=== PATIENT | male | born 1985 | race Hispanic/Latino ===

== ENCOUNTER 2016-08-09 12:41 | Emergency (ER) | payer BC, OTHER ==
[2016-08-09 12:53] VITALS: BP 141/70; PULSE 73; RESP 18; TEMP 97.5; O2SAT 95
--- NOTE | 2016-08-09 13:03 | C.PDOC ---
History Of Present Illness 31 yo male w/o significant PMHx come in for evaluation of Left lower leg dog bite sustained today around 11 AM. Pt sts, was walking on street, when other person was turned around the corner with dog on leash. Dog jumped and grab me by my jeans and owner professional engineer was able to pull the dog back from me". Pt admits, went home and washed the wound thoroughly. Otherwise, pt denies open wound, weakness to left leg, sensory or vascular deficits to injured leg. Ambulate to ED for evaluation, not in any apparent distress. Time Seen by Provider: 08/09/16 12:55 Chief Complaint (Nursing): Bite History Per: Patient Onset/Duration Of Symptoms: Sudden Onset Past Medical History Reviewed: Historical Data, Nursing Documentation, Vital Signs Vital Signs: Last Vital Signs Temp 97.5 F L 08/09/16 12:51 Pulse 73 08/09/16 12:51 Resp 18 08/09/16 12:51 BP 141/70 08/09/16 12:51 Pulse Ox 95 08/09/16 12:51 - Medical History PMH: No Chronic Diseases Surgical History: No Surg Hx - [facility] Procedures APPLICATION OF SPLINT (10/25/14) CLOSURE SKIN & SUBCUTANEOUS NEC (12/18/12) DIPHTHERIA TOXOID ADMIN (12/18/12) TETANUS TOXOID ADMINIST (12/18/12) Family History: States: Diabetes - Social History Hx Tobacco Use: No Hx Alcohol Use: Yes Hx Substance Use: No - Immunization History Hx Tetanus Toxoid Vaccination: No Hx Influenza Vaccination: Yes Hx Pneumococcal Vaccination: No Review Of Systems Except As Marked, All Systems Reviewed And Found Negative. Constitutional: Negative for: Fever, Chills Musculoskeletal: Negative for: Leg Pain Skin: Positive for: Lesions Neurological: Negative for: Weakness Physical Exam - Physical Exam Appears: Well, Non-toxic, No Acute Distress Skin: Normal Color, Warm, Other (superficial abrasion with trace ecchymoses to Left proximal fibula. No puncture or open wound noted. No wound discharge, no erythema, no proximal streaking. FAROM, no neurovascular deficits) Head: Atraumatic, Normacephalic Eye(s): bilateral: Normal Inspection Oral Mucosa: Moist Neck: Normal, Normal ROM, Supple Extremity: Normal ROM, No Tenderness, No Deformity, No Swelling Extremity: Bilateral: Atraumatic Neurological/Psych: Oriented x3, Normal Speech, Normal Motor, Normal Sensation, Normal Reflexes ED Course And Treatment O2 Sat by Pulse Oximetry: 95 Progress Note: On re-evaluation, pt is afebrile, hemodynamicaly stable. Non- toxic. AMbulatory in ED with stable gait. Left leg; superficial abrasion to Left leg noted, no puncture/opened wound. FAROM, no neurovascular deficits. NO cellulitis. Pt advised on course of ds. ref. to F/u with PMD In 2-3 dyas for re-eavl. return to ED if any worsening or new changes. Disposition Counseled Patient/Family Regarding: Diagnosis, Need For Followup, Rx Given - Disposition Referrals: [facility] [Outside] Disposition: HOME/ ROUTINE Disposition Time: 13:03 Condition: STABLE Additional Instructions: Clean wound daily for peroxide Antibacterial cream daily to wound Take medication as prescribed Follow up with PMD In 2-3 days for re-evaluation. Return to ED if any worsening or new changes. Prescriptions: Bacitracin OINT 1 applic TP BID #1 tube Doxycycline Hyclate 100 mg PO Q12 #14 tab Instructions: Animal Bite (ED) - Clinical Impression Clinical Impression: Animal bite wound
== END 2016-08-09 13:20 | disposition home or self-care (01) ==
LOC: C.ER 12:41
DX: S80.812A Abrasion, left lower leg, initial encounter (principal); W54.0XXA Bitten by dog, initial encounter; Y93.01 Activity, walking, marching and hiking; Y92.410 Unspecified street and highway as the place of occurrence of the external cause

== ENCOUNTER 2017-11-18 11:42 | Emergency (ER) | payer BC ==
[2017-11-18 11:50] VITALS: BP 126/78; PULSE 66; RESP 16; TEMP 98; O2SAT 96
[2017-11-18] MEDS ORDERED: Fluorescein 1 mg Ophthalmic Strip OD ONE (12:12)
[2017-11-18] MEDS ORDERED: Tetracaine 0.5% Ophth 2 ML BOTTLE OU ONE (12:12)
[2017-11-18] MEDS ORDERED: Tetracaine 0.5% Ophth (OR ONLY) ONE (12:24)
[2017-11-18] MEDS ORDERED: Fluorescein 1 mg Ophthalmic Strip ONE (12:26)
--- NOTE | 2017-11-18 12:38 | C.PDOC ---
History Of Present Illness 32 y/o male presents to ED with c/o right eye cloudiness and trouble seeing which developed today. Patient states stripping solution got into right eye yesterday while at work. He was stripping floors and using the "stripping solution" when some liquid splashed in his eye. Patient states he used eye wash at work. Denied any pain or burning at that time and even currently. Patient denies pain, fever, headache or discharge from eye. Time Seen by Provider: 11/18/17 11:58 Chief Complaint (Nursing): Eye Problem History Per: Patient History/Exam Limitations: no limitations Onset/Duration Of Symptoms: Days Current Symptoms Are (Timing): Still Present Past Medical History Reviewed: Historical Data, Nursing Documentation, Vital Signs Vital Signs: Last Vital Signs Temp 98.0 F 11/18/17 11:49 Pulse 66 11/18/17 11:49 Resp 16 11/18/17 11:49 BP 126/78 11/18/17 11:49 Pulse Ox 96 11/18/17 13:11 - Medical History PMH: No Chronic Diseases Surgical History: No Surg Hx - [facility] Procedures APPLICATION OF SPLINT (10/25/14) CLOSURE SKIN & SUBCUTANEOUS NEC (12/18/12) DIPHTHERIA TOXOID ADMIN (12/18/12) TETANUS TOXOID ADMINIST (12/18/12) Family History: States: Diabetes - Social History Hx Tobacco Use: No Hx Alcohol Use: Yes Hx Substance Use: No - Immunization History Hx Tetanus Toxoid Vaccination: No Hx Influenza Vaccination: Yes Hx Pneumococcal Vaccination: No Review Of Systems Constitutional: Negative for: Fever, Chills Eyes: Positive for: Pain, Vision Change Respiratory: Negative for: Cough, Shortness of Breath Skin: Negative for: Rash Physical Exam - Physical Exam Appears: Non-toxic, No Acute Distress Skin: Warm, Dry, No Rash Head: Atraumatic, Normacephalic Eye(s): bilateral: PERRL, EOMI, right: Other (cloudiness and small bubble to lateral eye), left: Normal Inspection Oral Mucosa: Moist Throat: Normal, No Erythema, No Exudate Chest: Symmetrical Neurological/Psych: Oriented x3, Normal Speech Gait: Steady ED Course And Treatment O2 Sat by Pulse Oximetry: 96 (RA) Pulse Ox Interpretation: Normal Medical Decision Making Medical Decision Making: Patient with solution to eye yesterday. Visual acuity obtained. Applied tetracaine and fluoroscein with no corneal abrasion visualized. On eye exam can see bubble and cloudy film to lateral eye. Attempt to rub area with cotton swab. Eye was irrigated with 1Liter sterile saline. Erythromycin ointment applied. Call optho weatherization operations manager Dr Boyce office to discuss case, not in office. Attempt to contact at [place] office and he was unavailable. Plan is to discharge and have patient go to the office of Dr Boyce for further evaluation. Disposition Counseled Patient/Family Regarding: Diagnosis, Need For Followup - Disposition Referrals: Sincere Boyce [Staff Provider] - Disposition: HOME/ ROUTINE Disposition Time: 13:10 Condition: STABLE Additional Instructions: Apply ointment to eye daily It is important that you follow up with opthomologist Dr Boyce in his office Instructions: Conjunctivitis (Noninfectious Pinkeye) (DC) Forms: [employer] ([place]ian), Work Excuse - POA Present On Arrival: None - Clinical Impression Clinical Impression: Chemical conjunctivitis of right eye - PA / ORDER TAKERS SUPERVISOR / Resident Statement MD/DO has reviewed & agrees with the documentation as recorded. - Scribe Statement The provider has reviewed the documentation as recorded by the Rayibsofia Sanchez All medical record entries made by the Marisol were at my direction and personally dictated by me. I have reviewed the chart and agree that the record accurately reflects my personal performance of the history, physical exam, medical decision making, and the department course for this patient. I have also personally directed, reviewed, and agree with the discharge instructions and disposition.
[2017-11-18] MEDS ORDERED: Erythromycin 0.5% Ophth Oint 1 APPLIC/3.5 G OD STA (12:51)
[2017-11-18] MEDS ORDERED: Erythromycin 0.5% Ophth Oint 1 APPLIC/3.5 G ONE (13:26)
== END 2017-11-18 13:28 | disposition home or self-care (01) ==
LOC: C.ER 11:42
DX: H10.211 Acute toxic conjunctivitis, right eye (principal)